=== PATIENT | female | born 1975 | race Caucasian/White ===

== ENCOUNTER 2016-06-26 12:35 | Inpatient (IN) | payer OTHER, MEDICARE ==
--- NOTE | ~2016-06-26 | HP ---
History And Physical [place] [id number] [facility] [place]. [address] NAME: EARLENE JACK : 79 STATUS : ADM IN [facility]#: [id number] AGE: 40 ADM/REG DATE : 06/26/16 MR#: [id number] REPORT SERV DATE: 06/30/16 DICTATED BY: CY GONZALES DATE: 06/29/16 REPORT STATUS : Draft TRANSCRIBED BY: MODOrly DATE: 06/29/16 DATE OF ADMISSION: 06/26/2016 Date of original admission is 06/26/2016. Date of transfer is 06/29/2016. HISTORY OF PRESENT ILLNESS: The patient is a 40-year-old with a 21 history of multiple sclerosis, increasingly weak, has not eaten for the last week. She has had a 50 pounds plus weight loss. She was on Tysabri, but that was stopped. She was admitted on 06/26/2016, hypotensive, septic with presumed E coli. She was placed on Levophed and Vapotherm for hypotension and respiratory failure. She is continued to decline. Vapotherm was stopped as was the Levophed and she is now hypotensive and moaning. PAST MEDICAL HISTORY: Pertinent for pancreatitis, kidney stones, factor V Leiden deficiency with no history of clots, panic disorder, depression, irritable bowel syndrome, anemia, positive for ALBERTA virus, acute kidney injury, multifocal leukoencephalopathy, and peptic ulcer disease. She is status post port Billroth II laparoscopic surgery for endometriosis, right shoulder, kidney stones, and hysterectomy. SOCIAL HISTORY: She smokes. No alcohol. No children. No family is present for my visit. FAMILY HISTORY: She has a family history of heart disease; breast, uterine, and ovarian cancer as well as DVTs. ALLERGIES: SHE HAS ALLERGIES TO SULFA, AMOXICILLIN, AND NSAIDS. REVIEW OF SYSTEMS: Difficult to do given the patient cannot speak. She is not eating for a week, had a weight loss of 50 pounds that is from the chart. PHYSICAL EXAMINATION: GENERAL: This is an emaciated cachectic white female, who looks a good 2 decades to 3 decades older than her stated age. HEENT: Tries to open her eyes and verbalize, but just moans. Her gaze is disconjugate. Pupils are equal. NECK: No thyroid masses are noted. LUNGS: Few wheezes noted in the left lung area. HEART: Has a regular rapid rhythm with no murmurs, rubs, gallops. ABDOMEN: Scaphoid, soft, but somewhat tender. EXTREMITIES: She has a bandage on her right heel from decubitus. She has 2+ edema and she has a bandage on her right forearm. ASSESSMENT AND PLAN: This is a 40-year-old with end-stage multiple sclerosis, weight loss, weakness, sepsis with respiratory failure, who is now changing to comfort care through [facility] on 06/29/2016. History And Physical [address] [place]. [address] NAME: EARLENE JACK : 79 STATUS : ADM IN [facility]#: [id number] AGE: 40 ADM/REG DATE : 06/26/16 MR#: [id number] REPORT SERV DATE: 06/30/16 DICTATED BY: CY GONZALES DATE: 06/29/16 REPORT STATUS : Draft TRANSCRIBED BY: IVETTE DATE: 06/29/16 GP/IVETTE Cy Gonzales MD / [id number] CC: Lul Paul PAUL E
--- NOTE | ~2016-06-26 | CN ---
Consultation Report [facility] [address] [place]. [address] NAME: EARLENE JACK : 79 STATUS : ADM IN PAT#: [id number] AGE: 40 ADM/REG DATE : 06/26/16 MR#: [id number] REPORT SERV DATE: 06/27/16 DICTATED BY: CHERI ZAPATA DATE: 06/27/16 REPORT STATUS : Draft TRANSCRIBED BY: IVETTE DATE: 06/27/16 NEUROLOGICAL EVALUATION IN THE MEDICAL INTENSIVE CARE UNIT DATE OF CONSULTATION: HISTORY OF PRESENT ILLNESS: This is a 40-year-old female with known history of multiple sclerosis diagnosed in 2004, who has been followed by her neurologist, Dr. Fonseca. The patient has history of intolerance to multiple MS medications which included Novantrone, Betaseron, Avonex, Rebif, baclofen, Neurontin, trazodone, Lunesta, Seroquel, melatonin, Elavil, and Ambien. The patient has a history of noncompliance, history of chronic pain medication abuse. The patient had been on Tysabri. Her last infusion appears to have been in May of this year. The patient was brought by her family to the emergency room in a severely debilitated and malnourished state. The patient was confused, staggering around, and falling. She appeared to have swelling in her arms and legs and possible chronic IV port infection. PAST MEDICAL HISTORY: History of pancreatitis; nephrolithiasis; gastrectomy with Billroth II in 2012; history of peptic ulcer disease; history of factor V Leiden deficiency. The patient is heterozygous. Previous history of depression, panic disorder, anxiety, history of irritable bowel syndrome, medication-induced seizures in 2007, history of renal stone surgery and history of shoulder surgery. SOCIAL HISTORY: The patient lives with her family. Does not drink alcohol. Apparently smokes ?occasionally. The patient is disabled. FAMILY HISTORY: Significant for history of coronary artery disease in the patient's father's family and history of cancer in patient's mother and her family. These included the patient's mother had history of breast cancer. There is history of ovarian and uterine cancer in the family. REVIEW OF SYSTEMS: Review of systems which was taken from the patient's family, the patient has had decreased appetite since she has been on Tysabri. As per patient, she had lost 50 pounds in the last five months. The rest of the review of system was difficult to obtain from the patient. The patient's symptoms have gradually progressed to the point where she became confused and was brought to the emergency room. In the emergency room, the patient was noted to have extremely low blood pressure. She was started on resuscitation, was given IV fluids, and has shown slight improvement since her admission last night. The patient, however, is still very confused and not able to provide a lot of information. MEDICATIONS PRIOR TO ADMISSION: Neurontin 400 mg t.i.d.; Klonopin 300 mg at bedtime; Bumex 1 mg twice a day; Percocet 5/325 q.4 h.; Zofran; and Klor-Con supplement 20 mg twice a day. PHYSICAL EXAMINATION: Consultation Report [address] [place]. [address] NAME: EARLENE JACK : 79 STATUS : ADM IN [facility]#: [id number] AGE: 40 ADM/REG DATE : 06/26/16 MR#: [id number] REPORT SERV DATE: 06/27/16 DICTATED BY: CHERI ZAPATA DATE: 06/27/16 REPORT STATUS : Draft TRANSCRIBED BY: IVETTE DATE: 06/27/16 GENERAL: The patient was somnolent, but arousable. Her general appearance was compatible with emaciated state. The patient appeared to respond to some questions, sitting up in bed, dozing off intermittently. VITAL SIGNS: Blood pressure 92/59, pulse was 108, respirations 16, temperature was 97.7, oxygen saturation 94%. The patient's weight was 49.2 kg. The patient is 5 feet 7 inches. HEAD AND NECK: Examination showed head to be normocephalic. Mild ecchymosis was noted over the right orbit. Otherwise, no evidence of trauma observed. Neck was supple. The patient did not appear uncomfortable moving her head in all positions. EYE: Sclerae were not icteric. Conjunctiva was pink. ENT: Tongue was slightly enlarged, red and beefish in appearance, shiny. No JVD. No thyromegaly detected. CHEST: Symmetrical. Severe decrease of muscle bulk was noted on inspection of the shoulder and chest anteriorly and posteriorly. LUNGS: Auscultation of her lungs showed decreased breath sounds. Decreased respiratory effort was also noted. HEART: Auscultation of her heart, regular S1, S2. I did not appreciate any murmurs or rubs. ABDOMEN: Scaphoid. Did not detect organomegaly. EXTREMITIES: Appeared edematous. Distal legs were in bandages. Distal hands appeared swollen; however, the edema appeared chronic and nonpitting. Skin was clear. No petechiae or ecchymosis observed. There was no clubbing or cyanosis. NEUROLOGICAL EXAMINATION: MENTAL STATUS EXAM: The patient was somnolent, but arousable. Appeared to intermittently respond appropriately; otherwise, had difficulty formulating sentences, was able to answer in short phrases. Her speech appeared fluent. The patient had difficulty with distant and recent memory. Provided some past medical history; however, had difficulty remembering dates. Oriented to self, hospital, not fully oriented to time except 06/2016. CRANIAL NERVE EXAMINATION II THROUGH XII: Visual warren on confrontation appeared intact. Funduscopic exam showed no evidence of papilledema, hemorrhages; pallor of the optic disc was noted. Pupils were 3 mm, reacted to light and accommodation. Extraocular movements were full except the patient would not follow commands to look up. Downward gaze was intact. There was no dysconjugate gaze. No facial asymmetry was noted. Muscles of mastication, corneal reflexes were symmetrical and normal. Muscles of facial expression showed no evidence of asymmetry. Tongue was midline. No atrophy or fibrillations were noted. Palate elevated symmetrically. Sternocleidomastoid and trapezius muscles were weak, but symmetrical and present. The patient was able to maintain her head upright with no difficulty sitting up in bed for prolonged periods of time. MOTOR EXAM: Muscle bulk was severely decreased. No fasciculations were observed. Diffuse and malnourished state perhaps contributing to decrease of muscle bulk throughout her body including extremities. Muscle strength was difficult to assess; however, the patient had diffuse weakness approximately 4+/5 throughout. Babinski signs were not elicitable. DEEP TENDON REFLEXES: Trace in upper extremities, absent in lower extremities. SENSORY EXAM: Difficult to evaluate. However, the patient appeared to have decreased vibratory sensation distally in lower extremities. Two-point discrimination was markedly Consultation Report [address] [place]. [address] NAME: EARLENE JACK : 79 STATUS : ADM IN PAT#: [id number] AGE: 40 ADM/REG DATE : 06/26/16 MR#: [id number] REPORT SERV DATE: 06/27/16 DICTATED BY: CHERI ZAPATA DATE: 06/27/16 REPORT STATUS : Draft TRANSCRIBED BY: MODL DATE: 06/27/16 impaired. Patient was not able to stand up. The rest of exam was difficult to evaluate. On [id number], no true ataxia was detected. REVIEW OF LABORATORY STUDIES: TSH 7.88, lactate 2.6, BNP 76.5. AST 56 on admission, 45 since then. Total protein 3.6, ALT 42, albumin 1.1, alkaline phosphatase 125. Lipase, not tested. Sodium 139, potassium 3.8, chloride 98, CO2 of 22, BUN 29, creatinine 2.25. Glomerular filtration rate 27, glucose 118, magnesium 1.6. WBC count 16.2, hemoglobin 10.8, hematocrit 31.7, PT/INR 1.7, PTT 57.6, platelet count 169,000. IMPRESSION AND RECOMMENDATION: 1. Multiple sclerosis with history of relapsing and remitting course, past history of intolerance to multiple multiple-sclerosis disease-modifying medications. The patient had several treatments of Tysabri, and the last use was either in May or September of this year. Rule out progressive multifocal leukoencephalopathy. The patient has been tested for ALBERTA virus antibodies and had been positive in the past with an index of 1.0. Recommend to obtain an MRI of the brain without and with contrast. The patient's CT scan of the head showed possible multiple sclerosis activity; however, the MRI study would be more diagnostic. 2. Recommend to get a lumbar puncture with cerebrospinal fluid analysis for any opportunistic infection in addition to progressive multifocal leukoencephalopathy virus activity. 3. Severely emaciated state. The patient appears severely malnourished with weight loss of 50 pounds in the last few months secondary to presumed poor p.o. intake. Recommend to obtain laboratory studies to rule out vitamin deficiencies, which in addition to vitamin B12, should include vitamin A, D, E, and K. The patient has a history of partial gastrectomy and Billroth II procedure in the past. 4. Encephalopathy, most likely multifactorial. In addition to her vitamin and protein deficiency, the patient should also be tested for recurrent pancreatitis, hepatitis, and human immunodeficiency virus-related secondary infections. 5. Pneumonia and urinary tract infection, possible hypothyroidism, history of factor V Leiden trait. Comment: The patient's previous MRI report was reviewed; last exam 10/2015. At that time, new lesions were reported as compared to the study done on 02/2015. These included frontal lesion on the right and frontoparietal lesion in the convexity. Additional lesion was noted in the left precentral gyrus. At that time, the MRI was read as lesions compatible with multiple sclerosis that had increased since previous study of 02/2015. As per verbal report, Dr. Kern discussed the patient's last MRI reviewed by Dr. Fonseca, which was several months ago, showed no changes as compared to the study of 10/2015. The information provided from Dr. Fonseca's office also includes index VA of 1.00. The test was performed at [facility] [place] in [place]. The date was 02/2015. MEDICATIONS: Medications the patient was on prior to admission were reviewed. These included Bumex, clonazepam, gabapentin, magnesium. The patient was also on hydrocodone, would recommend monitoring for any withdrawal from medications if these medications are Consultation Report [address] [place]. [address] NAME: EARLENE JACK : 79 STATUS : ADM IN PAT#: [id number] AGE: 40 ADM/REG DATE : 06/26/16 MR#: [id number] REPORT SERV DATE: 06/27/16 DICTATED BY: CHERI ZAPATA DATE: 06/27/16 REPORT STATUS : Draft TRANSCRIBED BY: IVETTE DATE: 06/27/16 withheld. Thank you for allowing me to participate in this patient's care. We will monitor the patient with you. We will discuss the patient's condition and progress with her primary neurologist, Dr. Fonseca. KALEIGH/IVETTE Cheri Zapata MD / [id number] CC: Lul Paul PAUL E
--- NOTE | ~2016-06-26 | DS ---
Discharge Summary [place] [id number] [facility] [place]. [address] NAME: EARLENE JACK : 79 STATUS : ADM IN [facility]#: [id number] AGE: 40 ADM/REG DATE : 06/26/16 MR#: [id number] REPORT SERV DATE: 06/28/16 DICTATED BY: ART KERN DATE: 06/28/16 REPORT STATUS : Draft TRANSCRIBED BY: MODL DATE: 06/28/16 ADMISSION DATE: 06/26/2016 DISCHARGE DATE: ADMISSION DIAGNOSES: 1. Extreme weakness. 2. Progressive multiple sclerosis. 3. Urinary tract infection. 4. History of pancreatitis. 5. Nephrolithiasis. 6. Peptic ulcer disease. 7. History of factor V Leiden deficiency with no previous deep venous thrombosis or clot. 8. Panic disorder. 9. Irritable bowel syndrome. 10.Medication-induced seizure. 11.Anemia. DISCHARGE DIAGNOSES: 1. Hypoxic respiratory failure. 2. Bilateral pneumonia, organism unknown. 3. Urinary tract infection with Escherichia coli. 4. Progressive multiple sclerosis. 5. Weight loss secondary to poor p.o. intake. 6. Malnutrition. 7. Hypothyroidism. 8. Failure to thrive. 9. Encephalopathy. 10.Increased ammonia level. 11.Severe depression. 12.Possible eating disorder. 13.ALBERTA virus positive. 14.History of gastrectomy with Billroth II. CONSULTANTS DURING THIS HOSPITALIZATION: Palliative care, Dr. Bello. HOSPITAL COURSE: This is a 40-year-old patient with multiple medical problems, who came in through the emergency room on the 06/26/2016 complaining of increasing weakness, multiple falls at home, and altered mental status. The patient has had very poor p.o. intake, has not been receiving her multiple sclerosis medication, which is Tysabri since she claims that it decreases her appetite. The patient was extremely weak. She already has a right subclavian port that was placed for her MS medication. The patient was resuscitated with IV fluids and started on Levophed. In the emergency room, cortisol level was checked and she was not adrenally insufficient. She was pancultured except for sputum which she did not produce. Chest x-ray showed bilateral infiltrates. She was initially started on Rocephin and vancomycin, and then her urine Discharge Summary [place] [id number] [facility] [address]. [address] NAME: EARLENE JACK : 79 STATUS : ADM IN PAT#: [id number] AGE: 40 ADM/REG DATE : 06/26/16 MR#: [id number] REPORT SERV DATE: 06/28/16 DICTATED BY: ART KERN DATE: 06/28/16 REPORT STATUS : Draft TRANSCRIBED BY: IVETTE DATE: 06/28/16 eventually grew out E. coli. The patient was very encephalopathic and further evaluation showed a high ammonia level of 158. The patient was placed on lactulose as well as rifaximin, oral zinc, and Culturelle. Her TSH was also elevated, and she was started on IV Synthroid since her p.o. intake was extremely poor. The patient also had multiple ulcerations and edema probably secondary to malnutrition and frequent falls. Code status was discussed immediately in the emergency room. Even though the patient was confused, she still insisted on being a do not resuscitate. Her mother and other family members were there and agreed that her wishes have been voiced by her on multiple occasions prior to her admission to the emergency room stating that she did not want to be resuscitated. She was subsequently admitted to the MICU and then follow there. Rocephin was continued until next day when her x-ray appeared worse and so she was changed from Rocephin to cefepime and vancomycin was continued. Her urine culture event we grew out E.coli. Blood cultures so far have been negative. Chest x-ray showed a new consolidation in the left lung, although the right lung seemed to be slightly improved the next morning on the . However, even after attempts to correct her ammonia level and had come down to the 90s, the patient became more agitated and was refusing to take anything orally even though she was very strongly urged to start taking food. She also refused a feeding tube and this all have been discussed in the presence of her family who know her wishes. The patient continued to deteriorate and was refusing treatment and was very difficult to obtain lab work since initially the Port-A-Cath was not functioning well, but that was re-accessed and then we were able to get lab work. Her white cell count continued to increase. She still required Levophed and her oxygen requirement then increased as well. The patient still wanted to be a DNR and her family upheld that decision. In this setting with refusal of at least a nasogastric tube or Dobbhoff and her code status being a DNR, palliative care was requested. Multiple discussions were held with the family and it was decided that the patient would go home with hospice. Arrangements are being made as of this dictation to either take her home with hospice or transfer her to the floor, possibly even comfort measures since we still cannot get her off the Levophed. Her oxygen requirement continued to increase and then we did try diuretics which improved her oxygenation somewhat, but she still requires high-flow O2. So as of this dictation, the plan will be full DNR, possible comfort measures, and hospice. Family is aware of the patient's wishes and agrees with the plan as outlined above. /IVETTE Art Kern M.D. / [id number] CC: Lul Paul PAUL E
--- NOTE | ~2016-06-26 | HP ---
History And Physical [address] [place]. [address] NAME: EARLENE JACK : 79 STATUS : ADM IN 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 The patient was evaluated in the emergency room and had a blood pressure initially of 98/66, but then she became more hypotensive and has a chronic port that has been accessed and IV fluid resuscitation was started. The patient was cultured initially started on Rocephin and Zithromax for suspicion of pneumonia. She is currently being admitted to the MICU for further care and evaluation. ALLERGIES: SHE HAS ALLERGIES TO SULFA, NSAIDS, AND AMOXICILLIN TO WHICH SHE GETS A RASH. MEDICATIONS: Her medications at home are Bumex 1 mg twice daily, Klonopin 3 mg at bedtime, Neurontin 400 mg t.i.d., magnesium oxide 400 mg daily, multivitamins without minerals, Zofran 4 mg every four hours p.r.n., Percocet 5/325 one tablet p.o. q.4 hours p.r.n., Klor- Con 20 mEq twice daily. PAST MEDICAL HISTORY: In addition to what is mentioned above, 1. Peptic ulcer disease. 2. History of factor V Leiden deficiency, but no history of DVT or clot. 3. Previous urinary tract infection with enterococcus. 4. Depression. 5. Panic disorder. 6. Irritable bowel syndrome. 7. Anemia. 8. Medication-induced seizure in 2007. 9. Status post laparoscopy for endometriosis. 10.Right shoulder surgery. 11.Renal stone surgery. 12.Hysterectomy. SOCIAL HISTORY: The patient continues to smoke occasionally, but does not drink alcohol currently. Lives with her mother, has no children. They live in [place]. FAMILY HISTORY: Significant for breast cancer in her mother. Father with coronary artery disease. There is also a familial history of uterine cancer, ovarian cancer, and blood clots. REVIEW OF SYSTEMS: Review of systems was obtained somewhat from the patient, but mostly from the family since she is extremely weak. According to the mom, whom she lives with, the patient's appetite has been extremely poor and it appears that while she was on Tysabri that she even has lost more weight. They were concerned about the possibility of PML since Tysabri is known to be History And Physical [address] [address] NAME: EARLENE JACK : 79 STATUS : ADM IN PAT#: [id number] AGE: 40 ADM/REG DATE : 06/26/16 MR#: [id number] REPORT SERV DATE: 06/26/16 DICTATED BY: ART KERN DATE: 06/26/16 REPORT STATUS : Draft TRANSCRIBED BY: IVETTE DATE: 06/26/16 associated with that and the patient is ALBERTA virus positive according to testing. CT scan has been done and results will be discussed later in this dictation. The patient has had no fevers at home. Denies any nausea or vomiting. Denies any chest pain. She does have hand pain, chronic lower extremity edema. She has had no known witnessed seizure activity, but has had frequent falls at home. Most recently, striking the occiput and also has fallen to the right, hitting the right side of her face. The patient's family also state that she has been losing hair. PHYSICAL EXAMINATION: GENERAL: The patient appears extremely ill. She is somewhat responsive, but practically nonverbal. The patient appears pale. VITAL SIGNS: Her blood pressure is 80/57, heart rate is 91, respiratory rate is 14. Her temperature in the emergency room was 97.7, O2 saturation was 98% on room air. SKIN: Warm, not diaphoretic. HEENT: Pupils are equal, reactive. Sclerae anicteric. Conjunctivae are pale. Nasal mucosa is within normal limits. Oral mucosa is dry. NECK: Supple without JVD, lymphadenopathy, or thyromegaly. RESPIRATORY: Lungs are decreased at the bases, but no crackles or wheezing are heard. CARDIAC: Reveals a regular rate and rhythm. BREASTS: Symmetrical. ABDOMEN: Soft, nondistended, nontender. Bowel sounds are present, but diminished. RECTAL/GENITAL: Deferred. EXTREMITIES: Notable for Unna boots on both lower extremities with obvious edema that apparently is chronic. The patient also has edematous upper extremities with what appears to be a cellulitis of the hands and some excoriations on the left lower extremity. NEUROLOGIC: Somewhat difficult since the patient is so weak. She is able to move all her extremities. Does not have any focal findings. Cranial nerves appear to be intact. Chest x-ray shows what might be either atelectasis or infiltrates. The quality of the film shows poor inspiratory effort. The white cell count is 16.2, hemoglobin 10, hematocrit 31, platelet count is a 156,000. PTT is 57. INR is 1.7. CT scan of the head shows lesions that are compatible with MS. The last documented MRI was in 10/2015 that showed multiple areas of abnormal T2 signal, consistent with multiple sclerosis that apparently have increased since her last study in 2014. BNP is 76.5. Urinalysis is positive for probable urinary tract infection. Sodium is 139, potassium 3.8, chloride 98, bicarb 22, BUN 29, creatinine is 2.25, glucose is 118, magnesium 1.6. Troponin 0.02. Lactic acid level is 2.2. ASSESSMENT AND PLAN: 1. This is a 40-year-old patient with multiple sclerosis follows with Dr. Fonseca; previous use of Tysabri actually from what the family says on two occasions, she no longer is taking it. She apparently is ALBERTA virus positive, which predisposes her to PML. There was no mention made of the possibility of PML on her further MRI, but will check with Dr. Fonseca's office regarding this. We will consult Neurology to make any further recommendations regarding her multiple sclerosis. 2. Urinary tract infection. Cultures are sent and pending. We will send a urinary Legionella antigen and strep pneumo antigen as well as swab the patient for the flu. History And Physical [address] [address] NAME: EARLENE JACK : 79 STATUS : ADM IN [facility]#: [id number] AGE: 40 ADM/REG DATE : 06/26/16 MR#: [id number] REPORT SERV DATE: 06/26/16 DICTATED BY: ART KERN DATE: 06/26/16 REPORT STATUS : Draft TRANSCRIBED BY: IVETTE DATE: 06/26/16 We will continue antibiotics. Add vancomycin and Rocephin. Blood cultures are sent and pending. Sputum has been ordered, but I am doubtful that the patient will be able to produce any, and urine culture is pending. 3. The patient's TSH, B12, folate will be checked. We will also need to consider the possibility of zinc deficiency or other mineral deficiency. The patient does have a gastrectomy and Billroth II, so we will need to make sure that her B12 level is within normal limits. 4. Acute kidney injury more than likely secondary to dehydration since the patient is on Bumex and has not been eating much, so we will follow this after IV fluid hydration. Her hemoglobin is 10.8, and I suspect that this will become even lower after she is resuscitated with IV fluids. 5. Hypotension, again more than likely secondary to combination of hypovolemia and sepsis, procalcitonin, and septic shock. Procalcitonin is pending. Continue antibiotics as above pending culture results. Zofran has been ordered for nausea. Patient's INR is 1.7. I doubt that she is a candidate for SCDs. We will start subcu heparin q.12 hours and follow PTT and INR carefully and watch for any evidence of bleeding. DVT prophylaxis. She is factor V Leiden deficient, but has no history of previous clots. The patient is in critical condition and is at risk for further deterioration with regard to her neurologic, respiratory, and kidney function. She requires frequent monitoring, vasoactive manipulation, hemodynamic assessment, neurologic monitoring and treatment, and assessment and treatment of complex metabolic derangements. She is in critical condition. Critical care time total was spent 60 minutes commencing at 4:45 p.m. to 5:45 p.m. Code status has been discussed with the patient in the presence of her family and she wishes to be a DNR. /IVETTE Art Kern M.D. / [id number] CC: Lul Paul PAUL E
[2016-06-26 12:02] LABS: BASOPHILS 0.1 %; BASOPHILS ABSOLUTE 0.01 10/3/uL (0.0-0.16); EOSINOPHILS 0.1 %; EOSINOPHILS ABSOLUTE 0.01 10/3/uL (0.0-0.53); HEMOGLOBIN 10.8 g/dL (12.0-16.0); IMMATURE GRANULOCYTES 0.4 %; IMMATURE GRANULOCYTES ABSOLUTE 0.07 10/3/uL (0.0-0.11); LYMPHOCYTES 8.6 %; MEAN CORPUS HGB CONC 34.1 g/dL (32.0-36.0); MEAN PLATELET VOLUME 11.1 fL (9.2-13.0); MONOCYTES 2.4 %; MONOCYTES ABSOLUTE 0.39 10/3/uL (0.21-1.20); NEUTROPHILS 88.4 %; NEUTROPHILS ABSOLUTE 14.36 10/3/uL (2.02-8.40)
[2016-06-26 12:03] LABS: HEMATOCRIT 31.7 % (36.0-48.0); MANUAL DIFF NO %; MEAN CORPUSCULAR HEMOGLOB 35.8 pg (26.0-34.0); PLATELET COUNT 156 10/3/uL (150-400); RED CELL COUNT 3.02 10/6/uL (4.0-5.6); WHITE BLOOD CELLS 16.2 10/3/uL (4.5-10.5)
[2016-06-26 12:10] LABS: INTERNATIONAL NORMAL RATI 1.7 UNITS (-); PARTIAL THROMBO TIME 57.6 SEC (22.5-37.2)
[2016-06-26 12:19] LABS: CALCIUM, SERUM 7.3 MG/DL (8.5-10.4); CHEST PAIN PROFILE TAT 0 Hrs 22 Mins; CHLORIDE, SERUM 98 MMOL/L (96-112); CO2 (CARBON DIOXIDE) 22 MMOL/L (24-34); GFR AFRICAN AMERICAN 31 ML/MIN (>=60); GFR NON AFRICAN AMERICAN 27 ML/MIN (>=60); GLUCOSE, SERUM 118 MG/DL (60-99); SODIUM, SERUM 139 MMOL/L (135-148); TROPONIN I 0.02 NG/ML (<0.05)
[2016-06-26 12:20] LABS: BUN (BLOOD UREA NITROGEN) 29 MG/DL (6-23); CREATININE 2.25 MG/DL (0.55-1.02); POTASSIUM, SERUM 3.8 MMOL/L (3.5-5.3)
[~2016-06-26 12:35] MED LIST: ACETAMINOPHEN; AMB5 PO; AMBIEN CR12.5 MG PO; AMIT25 PO; AMIT50 PO; BENTYL10 PO; CIP2 PO; CIP5 PO; CREON DR 36,001 EACH PO; CREON12000 UNT PO; DEPO-PROVER150 MG/ML IM; DEXILANT; DITRO5 PO; EXCEDRIN PO; EXCEDRINTB PO; FLAG500TAB PO; KAPIDEX60 MG PO; KLONO2 PO; LEVOTHYROXIN25 MCG PO; LORTAB 5 PO; LUNESTA3 MG PO; NEUR300 PO; NEUR800 PO; NEXIUM40 PO; OXYCOD PO; PCET PO; PERCOCET PO; PERCOCET1 TA2 PO; PR25 PO; PRILO PO; PRILOSEC40 MG PO; PROTONIX PO; REG PO; SUCR PO; TYSABRI IV; UROGESIC-BLU OR; ZANTAC150 MG PO; ZANTAC300 MG PO
[2016-06-26 12:48] LABS: ASCORBIC ACID (UR NOT ORDER) NEG (NEG); BILIRUBIN, URINE NEGATIVE (NEG); ER URINALYSIS TAT 0 Hrs 14 Mins; KETONE, URINE NEGATIVE (NEG); LEUKOCYTE ESTERASE(NOT OR LARGE (NEG); NITRITE (URINE) NEG (NEG); WBC (NOT ORDERED) (RFLEX) 94 (0-5)
[2016-06-26] MEDS ORDERED: BUM1 PO (15:58)
[2016-06-26] MEDS ORDERED: KLONO1 PO (15:59)
[2016-06-26] MEDS ORDERED: ZOFRAN4 PO (16:00)
[2016-06-26] MEDS ORDERED: MAGOX4 PO (16:00)
[2016-06-26] MEDS ORDERED: MULTIVITAMI1 PO (16:00)
[2016-06-26] MEDS ORDERED: NEUR400 PO (16:00)
[2016-06-26] MEDS ORDERED: KLOR-CON M2020 MEQ PO (16:01)
[2016-06-26] MEDS ORDERED: PCET PO (16:01)
[2016-06-26 16:39] LABS: INFLUENZA A SCREEN NEGATIVE (NEGATIVE); INFLUENZA B SCREEN NEGATIVE (NEGATIVE)
[2016-06-26 18:15] LABS: FREE T4 0.72 NG/DL (0.76-1.46); SGOT(AST) 56 U/L (5-40); SGPT(ALT) 51 U/L (5-65)
[2016-06-26 18:17] LABS: A/G RATIO 0.4 (0.7-1.9); ALBUMIN 1.1 G/DL (3.5-5.0); ALKALINE PHOSPHATASE 125 U/L (45-117); DIRECT BILIRUBIN 1.2 MG/DL (0.0-0.4); GLOBULIN 2.8 G/DL (2.5-4.1); INDIRECT BILIRUBIN(NOT ORDER) 0.5 MG/DL (0.1-0.9); TOTAL BILIRUBIN 1.7 MG/DL (0-1.2); TOTAL PROTEIN 3.9 G/DL (6.0-8.5)
[2016-06-26 18:39] LABS: PROCALCITONIN 0.85 ng/mL (<0.5)
[2016-06-26 19:17] LABS: ACETAMINOPHEN LEVEL (TYLENOL) 8.8 MCG/ML (10.0-20.0)
[2016-06-26 19:18] LABS: ALCOHOL < 3 MG/DL (0); SALICYLATE < 1.7 MG/DL (-)
[2016-06-26 21:14] LABS: BARBITURATES (NOT ORDERED NEG (NEG); BENZODIAZEPINES (NOT ORD) NEG (NEG); CANNABINOIDS (THC) NEG (NEG); COCAINE (NOT ORDERED) NEG (NEG); OPIATES NEG (NEG); PHENCYCLIDINE(PCP) NEG (NEG)
[2016-06-26 21:15] LABS: AMPHETAMINES (NOT ORD) POS (NEG); TRICYCLICS NEG (NEG)
[2016-06-26 22:57] LABS: LACTATE 4.5 MMOL/L (0.3-2.4)
[2016-06-27 03:57] LABS: BASOPHILS 0.1 %; BASOPHILS ABSOLUTE 0.01 10/3/uL (0.0-0.16); EOSINOPHILS 0.6 %; EOSINOPHILS ABSOLUTE 0.12 10/3/uL (0.0-0.53); HEMATOCRIT 32.5 % (36.0-48.0); HEMOGLOBIN 10.7 g/dL (12.0-16.0); IMMATURE GRANULOCYTES 0.3 %; IMMATURE GRANULOCYTES ABSOLUTE 0.06 10/3/uL (0.0-0.11); LYMPHOCYTES 6.4 %; LYMPHOCYTES ABSOLUTE 1.24 10/3/uL (0.67-4.30); MEAN CORPUS HGB CONC 32.9 g/dL (32.0-36.0); MEAN CORPUSCULAR HEMOGLOB 34.9 pg (26.0-34.0); MEAN CORPUSCULAR VOLUME 105.9 fL (80-100); MEAN PLATELET VOLUME 10.9 fL (9.2-13.0); MONOCYTES 2.6 %; NEUTROPHILS ABSOLUTE 17.45 10/3/uL (2.02-8.40); PLATELET COUNT 169 10/3/uL (150-400); RBC DISTRIBUTION WIDTH 17.3 % (12.0-16.0); RED CELL COUNT 3.07 10/6/uL (4.0-5.6); WHITE BLOOD CELLS 19.4 10/3/uL (4.5-10.5)
[2016-06-27 03:58] LABS: MANUAL DIFF NO %
[2016-06-27 04:15] LABS: A/G RATIO 0.6 (0.7-1.9); ALBUMIN 1.3 G/DL (3.5-5.0); ALKALINE PHOSPHATASE 119 U/L (45-117); CALCIUM, SERUM 7.3 MG/DL (8.5-10.4); CHLORIDE, SERUM 103 MMOL/L (96-112); CO2 (CARBON DIOXIDE) 22 MMOL/L (24-34); GFR AFRICAN AMERICAN 72 ML/MIN (>=60); GFR NON AFRICAN AMERICAN 62 ML/MIN (>=60); GLOBULIN 2.3 G/DL (2.5-4.1); GLUCOSE, SERUM 98 MG/DL (60-99); POTASSIUM, SERUM 3.3 MMOL/L (3.5-5.3); SGOT(AST) 45 U/L (5-40); SGPT(ALT) 42 U/L (5-65); SODIUM, SERUM 142 MMOL/L (135-148); TOTAL BILIRUBIN 2.1 MG/DL (0-1.2); TOTAL PROTEIN 3.6 G/DL (6.0-8.5)
[2016-06-27 04:17] LABS: BUN (BLOOD UREA NITROGEN) 20 MG/DL (6-23); CREATININE 1.12 MG/DL (0.55-1.02)
[2016-06-27 13:37] LABS: INTERNATIONAL NORMAL RATI 1.8 UNITS (-); PARTIAL THROMBO TIME 40.5 SEC (22.5-37.2); PROTIME (NOT ORD) 20.9 SEC (12.0-14.5)
[2016-06-27 14:49] LABS: FOLATE 25.7 NG/ML (>5.2); POTASSIUM, SERUM 4.2 MMOL/L (3.5-5.3)
[2016-06-27 15:47] LABS: PROCALCITONIN 0.9 ng/mL (<0.5)
[2016-06-28 03:51] LABS: HEMATOCRIT 31.6 % (36.0-48.0); HEMOGLOBIN 10.7 g/dL (12.0-16.0); MEAN CORPUS HGB CONC 33.9 g/dL (32.0-36.0); MEAN CORPUSCULAR HEMOGLOB 35.7 pg (26.0-34.0); MEAN CORPUSCULAR VOLUME 105.3 fL (80-100); MEAN PLATELET VOLUME 10.3 fL (9.2-13.0); PLATELET COUNT 156 10/3/uL (150-400); RBC DISTRIBUTION WIDTH 16.9 % (12.0-16.0)
[2016-06-28 03:52] LABS: MANUAL DIFF YES %; WHITE BLOOD CELLS 25.2 10/3/uL (4.5-10.5)
[2016-06-28 04:13] LABS: A/G RATIO 0.5 (0.7-1.9); ALBUMIN 1.3 G/DL (3.5-5.0); ALKALINE PHOSPHATASE 126 U/L (45-117); ANISOCYTOSIS 1+ (5-10/OIF) (0-5/OIF); BAND NEUTROPHILS 3 %; CALCIUM, SERUM 7.5 MG/DL (8.5-10.4); CHLORIDE, SERUM 110 MMOL/L (96-112); CO2 (CARBON DIOXIDE) 20 MMOL/L (24-34); CREATININE 1.04 MG/DL (0.55-1.02); GFR AFRICAN AMERICAN 79 ML/MIN (>=60); GFR NON AFRICAN AMERICAN 68 ML/MIN (>=60); GLOBULIN 2.5 G/DL (2.5-4.1); IMMATURE GRANS ABSOLUTE (CALC) 0.25 10/3/uL (0.0-0.11); LYMPHOCYTES 2 %; MACROCYTES 1+ (5-10/OIF) (0-5/OIF); MONOCYTES 4 %; MONOCYTES ABSOLUTE (CALC) 1.01 10/3/uL (0.21-1.20); NEUTROPHILS ABSOLUTE (CALC) 23.44 10/3/uL (2.02-8.40); PLATELET ESTIMATE ADQ (ADEQUATE); POTASSIUM, SERUM 3.6 MMOL/L (3.5-5.3); PROMYELOCYTES 1 % (0); RBC MORPHOLOGY ABN (NORMAL); SEGMENTED NEUTROPHIL (0) 90 %; SGOT(AST) 47 U/L (5-40); SGPT(ALT) 47 U/L (5-65); SODIUM, SERUM 148 MMOL/L (135-148); TOTAL NUCLEATED CELLS 100; TOTAL PROTEIN 3.8 G/DL (6.0-8.5)
[2016-06-28 04:15] LABS: BUN (BLOOD UREA NITROGEN) 12 MG/DL (6-23); GLUCOSE, SERUM 224 MG/DL (60-99)
[2016-06-28 06:39] LABS: PROCALCITONIN 0.98 ng/mL (<0.5)
[2016-06-28 11:46] LABS: HEPATITIS B SURFACE ANTIGEN NON-REACTIVE (NON-REACT)
[2016-06-28 12:05] LABS: HEPATITIS B CORE AB IGM NON-REACTIVE (NON-REAC); HEPATITIS C ANTIBODY NON-REACTIVE (NON-REACT)
[2016-06-28 12:06] LABS: HIV COMBO NON-REACTIVE (NON REAC)
[2016-06-28 12:07] LABS: HEP A ANTIBODY IGM NON-REACTIVE (NON-REACT)
== END 2016-06-30 10:18 | disposition hospice, inpatient (51) | DRG 871 ==
LOC: ER 12:35 → MIC 15:41 → 4EA 06-30 09:18
PROVIDERS: Emergency Medicine; Internal Medicine Pulmonary Disease
DX: A41.9 Sepsis, unspecified organism (principal); R65.21 Severe sepsis with septic shock; J96.01 Acute respiratory failure with hypoxia; E43 Unspecified severe protein-calorie malnutrition; G93.40 Encephalopathy, unspecified; D68.51 Activated protein C resistance; J18.9 Pneumonia, unspecified organism; N17.9 Acute kidney failure, unspecified; L89.609 Pressure ulcer of unspecified heel, unspecified stage; N39.0 Urinary tract infection, site not specified; Z68.1 Body mass index [BMI] 19.9 or less, adult; L03.114 Cellulitis of left upper limb; L03.113 Cellulitis of right upper limb; G35 Multiple sclerosis; E86.0 Dehydration; K58.9 Irritable bowel syndrome, unspecified; B96.20 Unspecified Escherichia coli [E. coli] as the cause of diseases classified elsewhere; F17.210 Nicotine dependence, cigarettes, uncomplicated; Z98.890 Other specified postprocedural states; Z90.49 Acquired absence of other specified parts of digestive tract; Z88.2 Allergy status to sulfonamides; Z88.1 Allergy status to other antibiotic agents; Z79.899 Other long term (current) drug therapy; Z87.11 Personal history of peptic ulcer disease; Z87.440 Personal history of urinary (tract) infections; Z90.710 Acquired absence of both cervix and uterus; E03.9 Hypothyroidism, unspecified; N20.0 Calculus of kidney; Z51.5 Encounter for palliative care; R62.7 Adult failure to thrive
CPT/HCPCS: 36600; 70450; 70551-52; 71010; 80048; 80053; 80074; 80305; 80307; 81001; 82140; 82248; 82330; 82533; 82607; 82746; 82803; 82947; 83605; 83735; 83880; 84132; 84145; 84295; 84439; 84443; 84481; 84484; 85014; 85025; 85610; 85730; 87040; 87070; 87077; 87086; 87186; 87205; 87389; 87449; 87641; 87804; 93005; 93970; 94640; 96361; 96365; 96366; 96375; 99285; A9270-GY; C8929; J0456; J0692; J1720; J1940; J3370; J3411; J3475; P9045; P9047; Q9957

== ENCOUNTER 2016-06-30 10:33 | Inpatient (IN) | payer OTHER ==
--- NOTE | ~2016-06-30 | DS ---
Discharge Summary [facility] [address] [place]. [address] NAME: EARLENE JACK : 79 STATUS : DIS IN PAT#: [id number] AGE: 40 ADM/REG DATE : 06/30/16 MR#: [id number] REPORT SERV DATE: 07/11/16 DICTATED BY: CY GONZALES DATE: 07/10/16 REPORT STATUS : Draft TRANSCRIBED BY: MODL DATE: 07/10/16 ADMISSION DATE: 06/30/2016 DISCHARGE DATE: 06/30/2016 DATE OF ORIGINAL ADMISSION: 06/26/2016. DATE OF TRANSFER TO [facility]: 06/29/2016. The patient is a 40-year-old white female with a 21-year history of multiple sclerosis, increasingly weak, and 50-pound weight loss. She had to stop her MS medications. She was admitted septic on 06/26/2016, placed on Levophed and Vapotherm, continued to decline, and the decision was made to focus on comfort care. For the rest of history and physical, please see the history and physical. She was unbelievably emaciated, tried to verbalize, but just moaned. She was really very end stage and was admitted GIP for comfort care. We discontinued a lot of her maintenance medications, but continued her on morphine 2 mg IV or subcu q.4 hours along with p.r.n. doses, and this seemed to control her pain reasonably well along with Ativan. The patient subsequently succumbed the following day, 06/30/2016 at 2:55 p.m. FINAL DIAGNOSES: sepsis with respiratory failure and shock secondary to end-stage multiple sclerosis. GP/MODL Cy Gonzales MD / [id number] CC: Cy Gonzales MD UNKNOWN
[~2016-06-30 10:33] MED LIST changes: +BUM1 PO; +KLONO1 PO; +KLOR-CON M2020 MEQ PO; +MAGOX4 PO; +MULTIVITAMI1 PO; +NEUR400 PO; +ZOFRAN4 PO
== END 2016-06-30 16:33 | disposition expired | DRG 58 ==
LOC: 4EA 10:33
DX: G35 Multiple sclerosis (principal); E43 Unspecified severe protein-calorie malnutrition; G92 Toxic encephalopathy; A41.9 Sepsis, unspecified organism; A81.2 Progressive multifocal leukoencephalopathy; J18.9 Pneumonia, unspecified organism; D68.51 Activated protein C resistance; N39.0 Urinary tract infection, site not specified; Z68.1 Body mass index [BMI] 19.9 or less, adult; L03.113 Cellulitis of right upper limb; L03.114 Cellulitis of left upper limb; N20.0 Calculus of kidney; K27.9 Peptic ulcer, site unspecified, unspecified as acute or chronic, without hemorrhage or perforation; K58.9 Irritable bowel syndrome, unspecified; D64.9 Anemia, unspecified; E03.9 Hypothyroidism, unspecified; Z51.5 Encounter for palliative care; Z66 Do not resuscitate; F32.9 Major depressive disorder, single episode, unspecified; F50.9 Eating disorder, unspecified; L89.609 Pressure ulcer of unspecified heel, unspecified stage
CPT/HCPCS: A9270-GY